=== PATIENT | male | born 1990 | race Caucasian/White ===

== ENCOUNTER 2022-04-04 18:37 | Emergency (ER) | payer OTHER ==
--- NOTE | 2022-04-04 19:18 | EDPHYS ---
Physician Documentation [facility] Name: Rajendra Rodriguez Age: 32 yrs Sex: Male : 1990 Arrival Date: 04/04/2022 Time: 18:44 Bed 7 Private MD: ED Physician Codey Samuel HPI: 04/04 19:20 This 32 yrs old Male presents to ER via EMS with complaints of dizziness. jr8 19:20 Patient stated that he was outside and killed a coral snake. Was skinning it when he jr8 started to feel dizzy and his heart race. Was concerned that maybe some of the venom had gotten into him. Patient stated that he is back to baseline at this time. Denies any drug or alcohol use. Denies any recent illness. Currently on no meds at this time.. Severity of symptoms: At their worst the symptoms were moderate in the emergency department the symptoms have resolved. The patient has not experienced similar symptoms in the past. The patient has not recently seen a physician. Historical: - Allergies: 18:46 Naproxen; ll1 18:46 Pineapple; ll1 - PMHx: 18:46 None; ll1 - PSHx: 18:46 None; ll1 - Immunization history:: Client reports having NOT received the Covid vaccine. Last tetanus immunization: > 10 years ago. - Social history:: Smoking status: Patient denies any tobacco usage or history of. ROS: 19:20 Eyes: Negative for injury, pain, redness, and discharge, ENT: Negative for injury, jr8 pain, and discharge, Neck: Negative for injury, pain, and swelling, Respiratory: Negative for shortness of breath, cough, wheezing, and pleuritic chest pain, Abdomen/GI: Negative for abdominal pain, nausea, vomiting, diarrhea, and constipation, Back: Negative for injury and pain, MS/Extremity: Negative for injury and deformity, Skin: Negative for injury, rash, and discoloration. 19:20 Cardiovascular: Positive for palpitations. 19:20 Neuro: Positive for dizziness. Exam: 19:20 Constitutional: This is a well developed, well nourished patient who is awake, alert, jr8 and in no acute distress. Eyes: Pupils equal round and reactive to light, extra-ocular motions intact. Lids and lashes normal. Conjunctiva and sclera are non-icteric and not injected. Cornea within normal limits. Periorbital areas with no swelling, redness, or edema. Neck: Trachea midline, no thyromegaly or masses palpated, and no cervical lymphadenopathy. Supple, full range of motion without nuchal rigidity, or vertebral point tenderness. No Meningismus. Cardiovascular: Regular rate and rhythm with a normal S1 and S2. No gallops, murmurs, or rubs. Normal PMI, no JVD. No pulse deficits. Respiratory: Lungs have equal breath sounds bilaterally, clear to auscultation and percussion. No rales, rhonchi or wheezes noted. No increased work of breathing, no retractions or nasal flaring. Abdomen/GI: Soft, non-tender, with normal bowel sounds. No distension or tympany. No guarding or rebound. No evidence of tenderness throughout. Skin: Warm, dry with normal turgor. Normal color with no rashes, no lesions, and no evidence of cellulitis. MS/ Extremity: Pulses equal, no cyanosis. Neurovascular intact. Full, normal range of motion. Neuro: Awake and alert, GCS 15, oriented to person, place, time, and situation. Cranial nerves II-XII grossly intact. Motor strength 5/5 in all extremities. Sensory grossly intact. Cerebellar exam normal. Normal gait. Vital Signs: 18:44 BP 132 / 65; Pulse 76; Resp 17; Temp 98.9; Pulse Ox 100% ; Weight 92.99 kg; Height 6 ll1 ft. 0 in. (182.88 cm); Pain 0/10; 19:28 BP 127 / 74; Pulse 68; Resp 17; Pulse Ox 100% on R/A; sm5 18:44 Body Mass Index 27.80 (92.99 kg, 182.88 cm) ll1 MDM: 18:57 Patient medically screened. jr8 19:20 Data reviewed: vital signs, nurses notes, EKG. Data interpreted: Pulse oximetry: on jr8 room air is 100 %. Interpretation: normal. Counseling: I had a detailed discussion with the patient and/or guardian regarding: the historical points, exam findings, and any diagnostic results supporting the discharge/admit diagnosis, the need for outpatient follow up, a family practitioner, to return to the emergency department if symptoms worsen or persist or if there are any questions or concerns that arise at home. ED course: Patient did not want to have blood work done at this time. EKG was without acute finding. Hemodynamically stable without any abnormal vital signs at this time. Patient remained stable and all symptoms had resolved. Recommended that he follow-up in the next few days and if he were to get worse or have a change in symptoms any point time to come back for further evaluation. Patient good with this at this time.. 04/04 18:58 Order name: EKG - Nurse/Tech; Complete Time: 19:04 jr8 Administered Medications: No medications were administered Disposition Summary: 04/04/22 19:17 Discharge Ordered Location: Home jr8 Problem: new jr8 Symptoms: are resolved jr8 Condition: Stable jr8 Diagnosis - Dizziness and giddiness jr8 - Palpitations jr8 Followup: jr8 - With: Private Physician - When: 2 - 3 days - Reason: Recheck today's complaints, Continuance of care, Re-evaluation by your physician Discharge Instructions: - Discharge Summary Sheet jr8 - Dizziness jr8 - Palpitations jr8 Forms: - Medication Reconciliation Form jr8 - Thank You Letter jr8 - Antibiotic Education jr8 - Prescription Opioid Use jr8 Addendum: 04/06/2022 06:58 Co-signature as Attending Physician, Codey Samuel MD. r n Signatures: Codey Samuel MD MD rn Roszak, Josh, PA PA jr8 Louisa De Jesus RN RN ll1
--- NOTE | 2022-04-04 19:18 | ER ---
Nurse's Notes [facility] Name: Rajendra Rodriguez Age: 32 yrs Sex: Male : 1990 Arrival Date: 04/04/2022 Time: 18:44 Bed 7 Private MD: Diagnosis: Dizziness and giddiness;Palpitations Presentation: 04/04 18:44 Chief complaint: Patient states: 45 min [employer]. Killed a coral snake, was skinning it and ll1 noticed a small wound to L thumb. Had dizziness, slurred speech, and heart racing that has resolved now. Coronavirus screen: Vaccine status: Patient reports being unvaccinated. Client denies travel out of the [place] in the last 14 days. At this time, the client does not indicate any symptoms associated with coronavirus-19. Ebola Screen: Patient denies travel to an Ebola-affected area in the 21 days before illness onset. Initial Sepsis Screen: Does the patient meet any 2 criteria? No. Patient's initial sepsis screen is negative. Does the patient have a suspected source of infection? Yes: Skin breakdown/wound. Risk Assessment: Do you want to hurt yourself or someone else? Patient reports no desire to harm self or others. Onset of symptoms was April 04, 2022. 18:44 Method Of Arrival: EMS ll1 18:44 Acuity: RACQUEL 3 ll1 Triage Assessment: 18:48 Bite description: bite sustained to left hand by a snake, animal information: 1 Appearance: appeared well, is superficial, from animal, vaccination(s) is not applicable was sustained 30-60 minutes ago. Animal status: unknown but captured. General: Appears in no apparent distress. Behavior is calm, cooperative, appropriate for age. Pain: Denies pain. Derm: Reports possible snake bite L thumb. Musculoskeletal: Circulation, motion, and sensation intact. Capillary refill < 3 seconds. Historical: - Allergies: 18:46 Naproxen; ll1 18:46 Pineapple; ll1 - PMHx: 18:46 None; ll1 - PSHx: 18:46 None; ll1 - Immunization history:: Client reports having NOT received the Covid vaccine. Last tetanus immunization: > 10 years ago. - Social history:: Smoking status: Patient denies any tobacco usage or history of. Screenin:49 Abuse screen: Denies threats or abuse. Nutritional screening: No deficits noted. ll1 Tuberculosis screening: No symptoms or risk factors identified. Fall Risk IV access (20 points). Mental Status- Oriented to own ability (0 pts). Vital Signs: 18:44 BP 132 / 65; Pulse 76; Resp 17; Temp 98.9; Pulse Ox 100% ; Weight 92.99 kg; Height 6 ll1 ft. 0 in. (182.88 cm); Pain 0/10; 19:28 BP 127 / 74; Pulse 68; Resp 17; Pulse Ox 100% on R/A; sm5 18:44 Body Mass Index 27.80 (92.99 kg, 182.88 cm) ll1 ED Course: 18:44 Patient arrived in ED. 1 18:46 Triage completed. 1 18:47 Cali Esquivel PA is PHCP. jr8 18:47 Codey Samuel MD is Attending Physician. jr8 18:47 Arm band placed on Patient placed in an exam room, on a stretcher. ll1 18:47 Maintain EMS IV. Gauge \T\ site: 18 G R AC. ll1 18:49 Patient has correct armband on for positive identification. Bed in low position. Call 1 light in reach. Side rails up X2. Pulse ox on. NIBP on. 18:50 Louisa De Jesus, RN is Primary Nurse. 1 19:32 No provider procedures requiring assistance completed. IV discontinued, intact, ll3 bleeding controlled, No redness/swelling at site. Pressure dressing applied. Administered Medications: No medications were administered Medication: 19:29 VIS not applicable for this client. 5 Outcome: 19:17 Discharge ordered by . 8 19:32 Discharged to home ambulatory, with significant other. 3 19:32 Condition: stable 19:32 Discharge instructions given to patient, family, Instructed on discharge instructions, follow up and referral plans. Demonstrated understanding of instructions, follow-up care. 19:33 Patient left the ED. 3 Signatures: Cali Esquivel PA PA jrLouisa Ruiz, RN RN ll1 Robert Macario RN RN ll3 Shala Urena RN RN 5
[2022-04-04 19:38] VITALS: TEMP 98.9; O2SAT 100
[2022-04-04 19:39] VITALS: BP 127/74
--- NOTE | 2022-04-05 07:53 | EKG ---
Test Date: 2022-04-04 Test Time: 18:58:43 Scrapper: TOSHIA MEASUREMENT RESULTS: Intervals: Rate: 71 MO: 176 QRSD: 118 QT: 402 QTc: 436 [place]: P: 76 MO: 176 QRS: 77 T: 43 INTERPRETIVE STATEMENTS: Normal sinus rhythm Nonspecific intraventricular conduction delay Borderline ECG No previous ECG available for comparison Electronically Signed On 04-05-22 07:51:56 CDT by Chintan Pierce
== END 2022-04-04 19:33 | disposition home or self-care (01) ==
LOC: ER 18:37
DX: R42 Dizziness and giddiness (principal); R00.2 Palpitations; Z88.6 Allergy status to analgesic agent; Z91.018 Allergy to other foods
CPT/HCPCS: 93005; 99283